=== PATIENT | male | born 1970 | race Two or more races ===

== ENCOUNTER 2024-08-04 22:55 | Emergency (ER) | payer BC, SELFPAY ==
[2024-08-04] VITALS (7 sets, daily range): BP systolic 120–162; BP diastolic 64–90; PULSE 97–128; RESP 16–93; TEMP 38.6; O2SAT 92–96; BMI 44.6
--- NOTE | 2024-08-04 23:12 | PD.EDADULT ---
ED General RME/HPI General Chief complaint: Abdominal Pain Stated complaint: ABDOMINAL PAIN Time Seen by Provider: 08/04/24 23:10 Arrival date/time: 08/04/24 22:55 RME / HPI RME / HPI narrative: Dr. Vidales?s Main ED Evaluation: 53yo male with a history of DM, HTN (no medications) [place] presents to the ED for a chief complaint of generalized abdominal pain x 2 days. Patient states he's been hauling oranges for the last 3-4 days, reporting he started having abdominal pain 2 days ago. He states at 1400 today, his pain significantly worsened. He reports having an associated headache and a fever. He denies any chest pain, shortness of breath, cough, UTI symptoms, rash, neck stiffness, scrotal pain/swelling or any other associated symptoms. Denies any alcohol or tobacco use. No PSH. Patient was in [place] 1 week ago and feels he may have dengue fever and his symptoms due to a mosquito bite, reporting his family had similar symptoms. Related Data Allergies Allergy/AdvReac Type Severity Reaction Status Date / Time No Known Allergies Allergy Verified 08/04/24 23:16 Review of Systems Review of Systems Systems Reviewed: All systems reviewed, normal except as documented Narrative Review of Systems: Gen: + fever, no chills, no weight loss EYES: No discharge, no visual changes, no pain HEENT: No ear pain, no congestion, no sore throat PULM: No shortness of breath, no cough, no congestion CV: No chest pain, no dyspnea on exertion, no palpitations GI: No nausea, no vomiting, no diarrhea, + pain, no constipation : No frequency, no urgency, no dysuria Musc/skel: No joint pain, no back pain Skin: No rash. Warm and dry. Psyc: No hallucinations, no depression Heme/Lymph: No easy bleeding or bruising tendencies Neuro: No weakness, + headache ED Exam Narrative Physical exam: GENERAL APPEARANCE: alert and oriented x 4, well-developed, well-nourished, no acute distress VITALS: All vitals were reviewed and the pulse ox is 95% on room air, which is normal according to my interpretation. HEENT: Normocephalic, atraumatic; pupils equal, round, reactive to light; EOMI; mucous membranes pink, moist; oropharynx clear NECK: Supple LUNGS: CTABL; no wheezes, no rales, no rhonchi HEART: Tachycardic, regular rhythm; normal S1, S2; no murmurs ABDOMEN: non distended; normal BS; soft, no tenderness, no guarding, no rebound; no masses, no organomegaly, no hernia BACK: no CVA tenderness EXTREMITIES: atraumatic; no edema NEUROLOGIC: awake; alert and oriented x4; cranial nerves II-XII grossly intact; no focal sensory or motor deficits PSYCHIATRIC: appropriate mood and affect SKIN: hot to touch, dry, normal color; no rashes Course Course Course Narrative: 2313: Sepsis alert initiated. Orders made at this time are congruent with ED Adult Sepsis Order List. Re-evaluation is to be completed. CXR is ordered for determining the etiology of fever. 2353: NS IVF started. Quality Measures Current suspected stage: ruled out Possible source: pulmonary, GI tract/intra-abdominal, genitourinary, meningitis, unknown and skin/soft tissue Blood cultures ordered: yes Antibiotic ordered: Yes Pertinent labs: 08/04/24 23:37 Lactic Acid 1.0 mMol/L (0.4-2.0) Procalcitonin 0.29 ng/ml (0.0-0.49) sepsis Orders Category Date Time Status Bedside COVID-19 Antigen Test NOW Care 08/04/24 23:52 Completed Bedside Influenza A&B Antigen Test NOW Care 08/04/24 23:52 Completed Cloth Washer Back Tender STAT Care 08/04/24 23:29 Completed Continuous Pulse Oximetry STAT Care 08/04/24 23:29 Completed EKG (ED ONLY) *Do not use* NOW Care 08/04/24 23:29 Completed In and Out Catheter X1PRN Care 08/04/24 23:29 Completed Insert IV NOW Care 08/04/24 23:29 Completed NPO STAT Care 08/04/24 23:29 Completed Strict Intake and Output Routine Care 08/04/24 23:29 Ordered EKG (ED Only) Stat Exams 08/04/24 23:29 Ordered XR chest 1V portable Stat Exams 08/04/24 23:29 Completed B-Type Natriuretic Peptide Stat Lab 08/04/24 23:37 Completed Blood Culture (Lab) Stat Lab 08/04/24 23:20 Completed CBC Stat Lab 08/04/24 23:37 Completed Comprehensive Metabolic Panel Stat Lab 08/04/24 23:37 Completed LDH (Lactate Dehydrogenase) Stat Lab 08/04/24 23:37 Completed Lactate (Lactic Acid) Stat Lab 08/04/24 23:37 Completed Lipase Stat Lab 08/04/24 23:37 Completed Magnesium Stat Lab 08/04/24 23:37 Completed Partial Thromboplastin Time Stat Lab 08/04/24 23:37 Completed Phosphorous Stat Lab 08/04/24 23:37 Completed Procalcitonin Stat Lab 08/04/24 23:37 Completed Prothrombin Time with INR Stat Lab 08/04/24 23:37 Completed Troponin I Stat Lab 08/04/24 23:37 Completed Urine Culture Stat Lab 08/05/24 00:58 Ordered Acetaminophen Ivpb [Ofirmev Inj] Med 08/04/24 23:30 Discontinued 1,000 mg in 100 ml IV Q6HR DiphenhydrAMINE INJ [Benadryl Inj] Med 08/05/24 03:27 Discontinued 12.5 mg IVP X1 ONE DiphenhydrAMINE [Benadryl] Med 08/05/24 03:29 Discontinued 25 mg PO X1 ONE Doxycycline Inj [Vibramycin Inj] 200 mg Med 08/04/24 23:29 Discontinued Sodium Chloride 0.9% 250 ml [Ns] 250 ml IV X1 Ketorolac Inj [Toradol Inj] Med 08/04/24 23:30 Discontinued 30 mg IVP X1 ONE Metoclopramide Inj [Reglan Inj] Med 08/05/24 03:27 Discontinued 10 mg IVP X1 ONE Metoclopramide [Reglan] Med 08/05/24 03:29 Discontinued 10 mg PO X1 ONE Morphine Inj Med 08/05/24 03:29 Discontinued 2 mg IM X1 ONE Morphine Inj Med 08/05/24 03:27 Discontinued 2 mg IVP X1 ONE Piper/Tazo 3.375 gm [Zosyn] Med 08/04/24 23:29 Discontinued 3.375 gm in 50 ml IV X1 Sodium Chloride 0.9% 1000 ml [Ns] 1,983 ml Med 08/04/24 23:29 Discontinued IV 1,983 mls/hr Oxygen Delivery NOW RT 08/04/24 23:29 Completed Vital Signs Vital signs: Vital Signs Temperature 101.4 F H 08/04/24 22:58 Pulse Rate 116 H 08/04/24 22:58 Respiratory Rate 20 08/04/24 22:58 Blood Pressure 162/90 H 08/04/24 22:58 Pulse Oximetry (%) 95 08/04/24 22:58 Oxygen Delivery Method Room Air 08/04/24 22:58 [facility] Patient data External records reviewed:: [facility] previous records (Per chart review, patient has no previous ED visits or admissions to this facility.) Clinical information provided by:: patient Social determinants that could affect healthcare access:: none Patient has the following chronic illnesses:: DM, HTN How is presenting disease/condition affected by chronic disease/condition?: uneffected by Evaluation data The following diagnostics were reviewed and interpreted by me:: lab results and radiology exam(s) Lab and/or radiology exams considered but not ordered:: none Interpretation Summary: Bedside COVID and Influenza are negative, CBC is normal, PT and INR are normal, PTT is normal, Glucose is 142, Lactic Acid is normal, troponin is normal, BNP is normal, Lipase is normal, Procalcitonin is normal, according to my interpretation. [facility] Report Signed Patient: HOLLY VALENCIA [facility] Record#: [id number] Birthdate: 1970 Age/Sex: 53 / M Location: [facility] Attending Dr: Ordering Physician: Rogerio Vidales MD Date of Service: 08/04/24 Procedure(s): XR chest 1V portable Accession Number(s): [id number] cc: Konstantin Mustafa MD; Rogerio Vidales MD~ Examination: AP chest single view TECHNIQUE: AP portable upright chest single view Examination type: August 04, 2024 at 11:40 PM Comparison August 04, 2024 INDICATIONS: Sepsis chest pain onset today. FINDINGS: Normal heart size No lobar pneumonia. Mild osteopenia IMPRESSION: No pneumonia or pulmonary edema Dictated By: Konstantin Mustafa MD Signed By: <Electronically signed by Konstantin Mustafa MD in [place]> 08/04/24 [id number] Medications Medications considered but not ordered:: none Medication administrations:: Medication Administration History Discontinued Medications Diphenhydramine HCl (Diphenhydramine Inj 50 Mg/Ml Vial) 12.5 mg IVP X1 ONE Stop: 08/05/24 03:28 Diphenhydramine HCl (Diphenhydramine 25 Mg Capsule) 25 mg PO X1 ONE Stop: 08/05/24 03:30 Last Admin: 08/05/24 04:24 Dose: 25 mg Documented By: MILLIE Sodium Chloride (Ns) 1,983 mls @ 1,983 mls/hr 30 ml/kg infuse over 60 min (1983 ml) IV .Q1H ONE Stop: 08/05/24 00:28 Last Infusion: 08/05/24 00:47 Dose: Infused Documented By: Admin: 08/04/24 23:53 Dose: 1,983 mls/hr Documented By: NICOL Piperacillin/Tazobactam/Dextrose (Zosyn) 3.375 gm in 50 mls @ 100 mls/hr IV X1 ONE Stop: 08/04/24 23:58 Last Infusion: 08/05/24 00:46 Dose: Infused Documented By: Admin: 08/04/24 23:50 Dose: 100 mls/hr Documented By: NICOL Doxycycline Hyclate 200 mg/ (Sodium Chloride) 250 mls @ 125 mls/hr IV X1 ONE Stop: 08/05/24 01:28 Last Infusion: 08/05/24 03:13 Dose: Infused Documented By: Admin: 08/05/24 00:44 Dose: 125 mls/hr Documented By: NICOL Acetaminophen (Ofirmev Inj) 1,000 mg in 100 mls @ 250 mls/hr IV Q6HR IBRAHIMA Stop: 08/05/24 12:23 Last Admin: 08/05/24 00:21 Dose: Not Given Documented By: NICOL Non-Admin Reason: Duplicate Medication on eMAR Infusion: 08/05/24 00:19 Dose: Infused Documented By: Admin: 08/04/24 23:49 Dose: 250 mls/hr Documented By: NICOL Ketorolac Tromethamine (Ketorolac Inj 30 Mg/Ml Vial) 30 mg IVP X1 ONE Stop: 08/04/24 23:31 Last Admin: 08/04/24 23:52 Dose: 30 mg Documented By: NICOL Metoclopramide HCl (Metoclopramide Inj 5 Mg/Ml Vial 2 Ml) 10 mg IVP X1 ONE; Protocol Stop: 08/05/24 03:28 Metoclopramide HCl (Metoclopramide 5 Mg Tablet) 10 mg PO X1 ONE Stop: 08/05/24 03:30 Last Admin: 08/05/24 04:25 Dose: 10 mg Documented By: MILLIE Morphine Sulfate (Morphine Sulf Inj 10 Mg/Ml Vial) 2 mg IVP X1 ONE Stop: 08/05/24 03:28 Morphine Sulfate (Morphine Sulf Inj 10 Mg/Ml Vial) 2 mg IM X1 ONE Stop: 08/05/24 03:30 Last Admin: 08/05/24 04:26 Dose: 2 mg Documented By: MILLIE see above Consultations Consultation(s) initiated? (list below): No Diagnosis Differential Diagnosis ED Complaint MDM: pneumonia, Influenza, UTI,cellulitis,intra-abdominal infection,dengue fever Most likely diagnosis given after review of the tests above:: see below Admission Indicated Admission indicated?: not indicated Explain why admission is indicated or not indicated:: Admission criteria not met. As of 303, patient feels significantly better and feels comfortable being discharged home. Admission Request Was there a request for admission?: No Disposition Plan Disposition Plan: Discharge Discharge Attestation Discharge Attestation: The patient and all family members were given an opportunity to ask questions and understood the discharge instructions. Discharge instructions specifically effects, indications for sooner follow up or return to the emergency department, and the expected course of current diagnosis. Patient condition: Stable Medical Decision Making MDM Narrative MDM Narrative: Scribe Attestation: 08/04/24 Trinidad Garcia am scribing for and in the presence of Dr. Vidales. Differential Diagnosis Differential Diagnosis: pneumonia, Influenza, UTI,cellulitis,intra-abdominal infection,dengue fever Lab Data 08/04/24 23:37 08/04/24 23:37 Labs: Lab Results 08/04/24 08/05/24 Range/Units 23:37 00:58 WBC 6.1 (3.8-10.6) Thou/mm3 RBC 5.01 (4.50-5.90) Miln/mm3 Hgb 13.8 (13.5-16.0) g/dL Hct 40.5 L (41.0-53.0) % MCV 81 (80-100) fL MCH 27.5 (25.0-35.0) pg MCHC 34.1 (31.0-37.0) g/dl RDW Std Deviation 42.1 (35.1-43.9) fL Plt Count 174 (140-440) Thou/mm3 Neut % (Auto) 82 H (37-80) % Lymph % (Auto) 5 L (10-50) % [place] % (Auto) 11 (0-12) % Eos % (Auto) 0 (0-10) % Baso % (Auto) 0 (0-2.5) % Neut # (Auto) 5.0 (1.8-7.7) Thou/mm3 Lymph # (Auto) 0.3 L (1.0-4.8) Thou/mm3 [place] # (Auto) 0.7 (0.0-0.8) Thou/mm3 Eos # (Auto) 0.0 (0.0-0.5) Thou/mm3 Baso # (Auto) 0.0 (0.0-0.2) Thou/mm3 Immature Gran # (Auto) 0.03 H (0.00-0.00) Thou/mm3 Absolute Nucleated RBC 0.00 (0.00-0.00) Thou/mm3 Immature Gran % 1 H (0-0) % Nucleated RBC % 0 (0) /100 WBC PT 12.1 (9.0-12.2) Seconds INR 1.1 (0.9-1.3) APTT 32.2 (22.0-36.0) Seconds Sodium 134 L (136-145) mMol/L Potassium 3.7 (3.4-5.1) mMol/L Chloride 101 (98-107) mMol/L Carbon Dioxide 22.6 (20.0-31.0) mMol/L Anion Gap 10 (7-16) BUN 17 (9-23) mg/dL Creatinine 1.0 (0.6-1.3) mg/dL Estim Creat Clear Calc 109.1 (>60) mL/min eGFR > 60 (60 - ) See Note BUN/Creatinine Ratio 17 (12-20) Ratio Glucose 142 H (74-106) mg/dL Calculated Osmolality 271 L (275-295) Lactic Acid 1.0 (0.4-2.0) mMol/L Calcium 8.9 (8.3-10.6) mg/dL Corrected Calcium 8.9 (8.5-10.1) mg/dL Phosphorus 2.0 L (2.4-5.1) mg/dL Magnesium 1.7 (1.6-2.6) mg/dL Total Bilirubin 0.4 (0.3-1.2) mg/dL AST 23 (0-34) U/L ALT 29 (10-49) U/L Alkaline Phosphatase 82 (46-116) U/L Lactate Dehydrogenase 197 (120-246) U/L Troponin I 0.026 (0.0-0.045) ng/mL B-Natriuretic Peptide < 20 (0-100) pg/mL Total Protein 7.5 (5.7-8.2) gm/dL Albumin 4.6 (3.5-5.0) gm/dL Globulin 2.9 (2.3-3.5) gm/dL Albumin/Globulin Ratio 1.6 (1.2-2.2) Lipase 36 (12-53) U/L Procalcitonin 0.29 (0.0-0.49) ng/ml Ur Collection Type Cancelled Urine Color Cancelled Urine Clarity Cancelled Urine pH Cancelled Ur Specific [place] Cancelled Urine Protein Cancelled Urine Glucose (UA) Cancelled Urine Ketones Cancelled Urine Blood Cancelled Urine Nitrite Cancelled Urine Bilirubin Cancelled Urine Urobilinogen (Auto) Cancelled Ur Leukocyte Esterase Cancelled Urine RBC Cancelled Urine WBC Cancelled Ur Squamous Epith Cells Cancelled Ur Transition Epith Cell Cancelled Ur Renal Epithelial Cell Cancelled Calcium Carbonate Cryst Cancelled Calcium Phosphate Cryst Cancelled Calcium Oxalate Crystal Cancelled Leucine Crystals Cancelled Cystine Crystals Cancelled Uric Acid Crystals Cancelled Triple Phos Crystals Cancelled Tyrosine Crystals Cancelled Amorphous Crystals Cancelled Urine Bacteria Cancelled Cellular Casts Cancelled Epithelial Casts Cancelled Fatty Casts Cancelled Hyaline Casts Cancelled Granular Casts Cancelled Waxy Casts Cancelled Broad Casts Cancelled RBC Casts Cancelled Urine Mucus Cancelled Urine Trichomonas Cancelled Ur Yeast w Hyphae Cancelled Urine Yeast (Budding) Cancelled Urine Sperm Cancelled Ur Oval Fat Bodies Cancelled Discharge Plan Plan Patient Disposition: HOME (Self Care) Disposition Comment: Stable for discharge Patient condition on transfer: Stable Prescriptions/Referrals Referrals: [facility] [Outside] - In 1 week No Primary/Family,Physician [Primary Care Provider] - In 1 week Problem List Clinical Impression: Dengue fever Patient/Caregiver Discharge Instructions Discharge Activity: activity as tolerated Diet Instructions: No restrictions Education Materials: Understanding Dengue Fever, ED Fever Control (Adult) Additional Instructions: Please return to the emergency department for any worsening or any further medical problems Otherwise you should follow-up with your primary care doctor or in the family health care clinic within the next several days. You should take both Motrin 600 mg and Tylenol 1000 mg at the same time every 6 hours. Print Language: Khmer Stand Alone Forms: Sarah Award Info., Patient Portal Info Letter
--- NOTE | 2024-08-04 23:29 | XR_ITS ---
Examination: AP chest single view TECHNIQUE: AP portable upright chest single view Examination type: August 04, 2024 at 11:40 PM Comparison August 04, 2024 INDICATIONS: Sepsis chest pain onset today. FINDINGS: Normal heart size No lobar pneumonia. Mild osteopenia IMPRESSION: No pneumonia or pulmonary edema
[2024-08-04 23:49] LABS: Basophils % (Auto) 0 % (0-2.5); Eosinophils % (Auto) 0 % (0-10); Hematocrit 40.5 % (41.0-53.0); Hemoglobin 13.8 g/dL (13.5-16.0); Immature Granulocytes % (Auto) 1 % (0-0); Immature Granulocytes Auto 0.03 Thou/mm3 (0.00-0.00); Lymphocytes # (Auto) 0.3 Thou/mm3 (1.0-4.8); Lymphocytes % (Auto) 5 % (10-50); Mean Corpuscular HGB Conc 34.1 g/dl (31.0-37.0); Mean Corpuscular Hemoglobin 27.5 pg (25.0-35.0); Mean Corpuscular Volume 81 fL (80-100); Monocytes # (Auto) 0.7 Thou/mm3 (0.0-0.8); Monocytes % (Auto) 11 % (0-12); Neutrophils % (Auto) 82 % (37-80); Nucleated Red Blood Cell % 0 /100 WBC (0); Platelet Count 174 Thou/mm3 (140-440); RDW Standard Deviation 42.1 fL (35.1-43.9); Red Blood Count 5.01 Miln/mm3 (4.50-5.90); White Blood Count 6.1 Thou/mm3 (3.8-10.6)
[2024-08-04] MEDS: ACETAMINOPHEN IVPB 1,000 MG/100 ML VIAL 250 MG IV (23:49)
[2024-08-04] MEDS: PIPER/TAZO 3.375 GM 3.375 GM/50 ML BAG IV (23:50)
[2024-08-04] MEDS: KETOROLAC INJ 30 MG/ML VIAL IVP (23:52)
[2024-08-04] MEDS: SODIUM CHLORIDE 0.9% 1000 ML 1,983 ML 1983 ML IV (23:53)
[2024-08-05] VITALS (15 sets, daily range): BP systolic 92–127; BP diastolic 55–92; PULSE 65–106; RESP 13–33; TEMP 36.8; O2SAT 93–97
[2024-08-05 00:16] LABS: Alanine Aminotransferase 29 U/L (10-49); Albumin, Serum 4.6 gm/dL (3.5-5.0); Albumin/Globulin Ratio 1.6 (1.2-2.2); Alkaline Phosphatase 82 U/L (46-116); Anion Gap 10 (7-16); Aspartate Amino Transferase 23 U/L (0-34); BUN/Creatinine Ratio 17 Ratio (12-20); Bilirubin,Total 0.4 mg/dL (0.3-1.2); Blood Urea Nitrogen 17 mg/dL (9-23); Calcium 8.9 mg/dL (8.3-10.6); Calcium (Corrected) 8.9 mg/dL (8.5-10.1); Carbon Dioxide 22.6 mMol/L (20.0-31.0); Chloride 101 mMol/L (98-107); Estimated Creatinine Clearance 109.1 mL/min (>60); Globulin 2.9 gm/dL (2.3-3.5); Glucose 142 mg/dL (74-106); Lipase 36 U/L (12-53); Magnesium 1.7 mg/dL (1.6-2.6); Osmolality,Calculated 271 (275-295); Potassium 3.7 mMol/L (3.4-5.1); Procalcitonin 0.29 ng/ml (0.0-0.49); Sodium 134 mMol/L (136-145); Total Protein 7.5 gm/dL (5.7-8.2); Troponin I 0.026 ng/mL (0.0-0.045); eGFR > 60 See Note
[2024-08-05 00:21] LABS: B-Type Natriuretic Peptide < 20 pg/mL (0-100)
[2024-08-05 00:25] LABS: INR 1.1 (0.9-1.3); Partial Thromboplastin Time 32.2 Seconds (22.0-36.0); Prothrombin Time 12.1 Seconds (9.0-12.2)
[2024-08-05 00:27] LABS: LDH (Lactate Dehydrogenase) 197 U/L (120-246)
[2024-08-05] MEDS: DOXYCYCLINE INJ 200 MG in SODIUM CHLORIDE 0.9% 250 ML 250 ML 125 MG IV (00:44)
[2024-08-05] MEDS: DiphenhydrAMINE 25 MG CAPSULE PO (04:24)
[2024-08-05] MEDS: METOCLOPRAMIDE 5 MG TABLET 10 MG PO (04:25)
[2024-08-05] MEDS: MORPHINE SULF INJ 10 MG/ML VIAL 2 MG IM (04:26)
== END 2024-08-05 04:41 | disposition home or self-care (01) ==
PROVIDERS: Emergency Provider Emergency Medicine
DX: A90 Dengue fever [classical dengue] (principal); E11.9 Type 2 diabetes mellitus without complications; I10 Essential (primary) hypertension
CPT/HCPCS: 36415; 71045; 80053; 81001; 83605; 83615; 83690; 83735; 83880; 84100; 84145; 84484; 85025; 85610; 85730; 87040; 87400; 87811; 93005; 96365; 96366; 96367; 96368; 96372; 96375; 99284; J0131; J1885; J2270; J2543; J3490; J7030; J7050; A9270